=== PATIENT | male | born 1995 | race Caucasian/White ===

== ENCOUNTER 2016-11-19 21:24 | Emergency (ER) | payer SELFPAY ==
[~2016-11-19] VITALS: Ht 175.3 cm; Wt 68.0 kg
[2016-11-19] MEDS ORDERED: LIDOCAINE HCL 1% 10 ML VIAL INJ ONE (22:30)
[2016-11-19 23:01] VITALS: BP 121/67
== END 2016-11-19 23:14 | disposition home or self-care (01) ==
LOC: EMS 21:26
DX: L08.9 Local infection of the skin and subcutaneous tissue, unspecified (principal); F17.210 Nicotine dependence, cigarettes, uncomplicated
CPT/HCPCS: 10060; 99283; J3490